=== PATIENT | male | born 1970 | race African-American/Black ===

== ENCOUNTER 2018-03-08 18:57 | Emergency (ER) | payer MEDICAID ==
[~2018-03-08] VITALS: Ht 177.8 cm; Wt 90.7 kg
[2018-03-08 20:20] LABS: Basophils # (auto) 0 uL; Basophils % (auto) 0.4 % (0.0-2.0); Eosinophils # (auto) 0.2 uL; Eosinophils % (auto) 1.7 % (0.0-7.0); Lymphocytes # (auto) 2.5 uL; Lymphocytes % (auto) 18.1 % (10.0-50.0); Mean Corpuscular Hemoglobin 28.8 pg (28.0-32.0); Mean Corpuscular Hgb Conc. 33.4 g/dL (32.0-36.0); Mean Corpuscular Volume 86.5 fL (80.0-100.0); Monocytes # (auto) 1.1 uL; Neutrophils # (auto) 9.9 uL; Neutrophils % (auto) 71.8 % (37.0-80.0); Platelet Count (auto) 587 10^3/uL (140-450); Red Blood Cells 4.16 10^6/uL (4.5-5.90); Red Cell Distribution Width 15.5 % (11.8-14.3); White Blood Cell 13.7 10^3/uL (4.4-10.8)
[2018-03-08 20:35] LABS: Albumin 2.5 g/dL (3.4-5.0); Calcium 9.5 mg/dL (8.5-10.1); Potassium 3.8 mmol/L (3.5-5.1)
[2018-03-08 20:37] LABS: BUN/Creatinine Ratio 12.7
[2018-03-08 20:40] LABS: Bilirubin, Total 0.3 mg/dL (0.2-1.0); Total Protein 9.7 g/dL (6.4-8.2)
[2018-03-08] MEDS ORDERED: ACETAMINOPHEN/CODEINE#3 (300/30mg) TAB PO ONE (21:45)
[2018-03-08] MEDS ORDERED: DOXYCYCLINE 100 MG TAB/CAP PO ONE (21:45)
[2018-03-08 21:47] VITALS: BP 140/78
== END 2018-03-08 22:08 | disposition home or self-care (01) ==
LOC: ER 18:57
DX: L73.2 Hidradenitis suppurativa (principal)
CPT/HCPCS: 36415; 80053; 82962; 85025

== ENCOUNTER 2019-12-05 09:16 | Emergency (ER) | payer MEDICAID ==
[~2019-12-05] VITALS: Ht 162.6 cm; Wt 88.5 kg
[2019-12-05 10:20] VITALS: BP 121/67
[2019-12-05 10:40] LABS: Basophils # (auto) 0.1 10 ^3/uL (0-0.2); Lymphocytes # (auto) 2.2 10 ^3/uL (0.4-5.4); Mean Corpuscular Hemoglobin 26.4 pg (28.0-32.0); Neutrophils % (auto) 70.7 % (37.0-80.0)
[2019-12-05 10:41] LABS: Basophils % (auto) 0.9 % (0.0-2.0); Eosinophils # (auto) 0.2 10 ^3/uL (0-0.8); Eosinophils % (auto) 1.3 % (0.0-7.0); Hematocrit 33.6 % (41.0-53.0); Hemoglobin 10.6 g/dL (13.5-17.5); Lymphocytes % (auto) 18.2 % (10.0-50.0); Mean Corpuscular Hgb Conc. 31.6 g/dL (32.0-36.0); Mean Corpuscular Volume 83.6 fL (80.0-100.0); Monocytes # (auto) 1.1 10 ^3/uL (0-1.3); Monocytes % (auto) 8.9 % (0.0-12.0); Neutrophils # (auto) 8.7 10 ^3/uL (1.6-8.6); Platelet Count (auto) 451 10^3/uL (140-450); Red Blood Cells 4.01 10^6/uL (4.5-5.90); White Blood Cell 12.2 10^3/uL (4.4-10.8)
[2019-12-05 10:43] LABS: Red Cell Distribution Width 20.1 % (11.8-14.3)
[2019-12-05 10:58] LABS: Albumin 2.8 g/dL (3.4-5.0); Calcium 10.3 mg/dL (8.5-10.1); Potassium 3.6 mmol/L (3.5-5.1)
[2019-12-05 11:01] LABS: BUN/Creatinine Ratio 10.2; Bilirubin, Total 0.5 mg/dL (0.2-1.0); Total Protein 9.9 g/dL (6.4-8.2)
== END 2019-12-05 12:04 | disposition left against medical advice (07) ==
LOC: ER 09:16
DX: L89.90 Pressure ulcer of unspecified site, unspecified stage (principal); L02.416 Cutaneous abscess of left lower limb; Z93.3 Colostomy status
CPT/HCPCS: 36415; 80053; 83605; 85025

== ENCOUNTER 2023-03-15 17:03 | Emergency (ER) | payer MEDICAID ==
[~2023-03-15] VITALS: Ht 177.8 cm; Wt 88.7 kg
[2023-03-15 18:29] VITALS: TEMP 97.9
[2023-03-15] MEDS ORDERED: SULF800T23 PO (18:54)
[2023-03-15] MEDS ORDERED: BACITRACIN TOP OINT 1 UD PKG TOP ONE ×2 (19:00)
[2023-03-15] MEDS ORDERED: cefTRIAXone SOD 1,000 MG VL IM ONE (19:00)
[2023-03-15 19:15] VITALS: BP 131/72; PULSE 95; RESP 18; O2SAT 99
== END 2023-03-15 19:16 | disposition home or self-care (01) ==
LOC: ER 17:03
DX: L73.2 Hidradenitis suppurativa (principal); L02.32 Furuncle of buttock; F17.210 Nicotine dependence, cigarettes, uncomplicated; F12.90 Cannabis use, unspecified, uncomplicated; Z98.890 Other specified postprocedural states
CPT/HCPCS: 96372; 99283; J0696

== ENCOUNTER 2023-05-24 12:38 | Inpatient (IN) | payer MEDICAID ==
[~2023-05-24] VITALS: Ht 177.8 cm; Wt 86.2 kg
[~2023-05-24 12:38] MED LIST: SULF800T23 PO
[2023-05-24 13:00] VITALS: PULSE 73; RESP 20; O2SAT 98
[2023-05-24 14:46] LABS: Basophils # (auto) 0.1 10 ^3/uL (0-0.2); Hemoglobin 9.4 g/dL (13.5-17.5); Mean Corpuscular Volume 82.8 fL (80.0-100.0); Red Cell Distribution Width 18.6 % (11.8-14.3)
[2023-05-24 14:49] LABS: Basophils % (auto) 0.6 % (0.0-2.0); Eosinophils # (auto) 0.2 10 ^3/uL (0-0.8); Eosinophils % (auto) 1.1 % (0.0-7.0); Hematocrit 30.6 % (41.0-53.0); Lymphocytes # (auto) 1.8 10 ^3/uL (0.4-5.4); Lymphocytes % (auto) 12.5 % (10.0-50.0); Mean Corpuscular Hemoglobin 25.4 pg (28.0-32.0); Mean Corpuscular Hgb Conc. 30.7 g/dL (32.0-36.0); Monocytes # (auto) 1.4 10 ^3/uL (0-1.3); Monocytes % (auto) 9.5 % (0.0-12.0); Neutrophils # (auto) 10.9 10 ^3/uL (1.6-8.6); Neutrophils % (auto) 76.3 % (37.0-80.0); Red Blood Cells 3.69 10^6/uL (4.5-5.90); White Blood Cell 14.2 10^3/uL (4.4-10.8)
[2023-05-24 15:01] LABS: Alanine Aminotransferase 15 U/L (7-40); Alkaline Phosphatase 109 U/L (46-116); Anion Gap 5 (5-15); BUN/Creatinine Ratio 8.3 (10.0-20.0); Blood Urea Nitrogen 5 mg/dL (9-23); Calcium 9.5 mg/dL (8.5-10.1); Carbon Dioxide 25 mmol/L (20-30); Chloride 108 mmol/L (98-107); Glucose 111 mg/dL (74-106); Potassium 3.8 mmol/L (3.5-5.1); Sodium 138 mmol/L (136-145)
[2023-05-24 15:02] LABS: Albumin 3.6 g/dL (3.2-4.8); Aspartate Aminotransferase 8 U/L (13-40); Bilirubin, Total 0.2 mg/dL (0.2-1.0); Total Protein 8.1 g/dL (5.7-8.2)
[2023-05-24] MEDS ORDERED: VANCOMYCIN 1GM/200ML 250 ML IV ONE (16:15)
[2023-05-24] MEDS ORDERED: PIPERACILLIN-TAZOB 3.375GM 100 ML IV ONE (16:15)
[2023-05-24] MEDS ORDERED: MORPHINE SULFATE INJ 2 MG/ml SYRG IV PRN (17:00)
[2023-05-24] MEDS ORDERED: DOCUSATE SOD 100 MG CAP PO PRN (17:00)
[2023-05-24] MEDS ORDERED: VANCOMYCIN PER PHARMACY 0 MG IV SCH (17:00)
[2023-05-24] MEDS ORDERED: ACETAMINOPHEN 325 MG TAB PO PRN (17:00)
[2023-05-24] MEDS ORDERED: ONDANSETRON HCL 4 MG/2 ML VIAL IV PRN (17:00)
[2023-05-24 17:08] LABS: Urine Bacteria NONE SEEN /hpf (None Seen); Urine Blood Negative /uL (Negative); Urine Clarity Clear (Clear); Urine Color Yellow (Yellow); Urine Hyaline Cast FEW /lpf (0 - 2); Urine Mucus FEW (None Seen); Urine Protein, UAD 1+ (Negative); Urine Specific Gravity 1.031 (1.001-1.035); Urine WBC 5 /hpf (0 - 3); Urine pH 5.5 (5.0-8.0)
[2023-05-24] MEDS: SODIUM CHLORIDE 0.9% 1,000 ML IV SCH ×2 (23:45→23:51)
[2023-05-24] MEDS: SODIUM CHLOR 0.9% PF (SALINE LOCK) 10ML VIAL/SYR IV SCH (23:51)
[2023-05-25] VITALS (8 sets, daily range): BP systolic 99–124; BP diastolic 66–98; PULSE 64–106; RESP 14–22; TEMP 97.3–98.3; O2SAT 98–99
[2023-05-25] MEDS ORDERED: VANCOMYCIN 1GM/200ML 250 ML IV SCH
[2023-05-25] MEDS: CLINDAMYCIN 600MG IV 50 ML IV SCH ×4 (00:29→22:38)
[2023-05-25] MEDS: SODIUM CHLORIDE 0.9% 1,000 ML IV SCH ×4 (01:04→21:25)
[2023-05-25] MEDS: VANCOMYCIN 1GM/200ML 250 ML IV SCH ×3 (02:56→19:00)
[2023-05-25] MEDS: HYDROcodone-ACET 5/325MG TAB PO PRN (03:19)
[2023-05-25] MEDS: SODIUM CHLOR 0.9% PF (SALINE LOCK) 10ML VIAL/SYR IV SCH ×3 (06:03→22:40)
[2023-05-25 06:06] LABS: Basophils # (auto) 0.1 10 ^3/uL (0-0.2); Hemoglobin 9.6 g/dL (13.5-17.5); Mean Corpuscular Hemoglobin 25.1 pg (28.0-32.0)
[2023-05-25 06:10] LABS: Basophils % (auto) 0.5 % (0.0-2.0); Eosinophils # (auto) 0.2 10 ^3/uL (0-0.8); Eosinophils % (auto) 1.2 % (0.0-7.0); Hematocrit 30.8 % (41.0-53.0); Lymphocytes # (auto) 2.4 10 ^3/uL (0.4-5.4); Lymphocytes % (auto) 15.8 % (10.0-50.0); Mean Corpuscular Hgb Conc. 31.1 g/dL (32.0-36.0); Mean Corpuscular Volume 80.8 fL (80.0-100.0); Monocytes # (auto) 1.2 10 ^3/uL (0-1.3); Monocytes % (auto) 7.7 % (0.0-12.0); Neutrophils # (auto) 11.5 10 ^3/uL (1.6-8.6); Neutrophils % (auto) 74.8 % (37.0-80.0); Red Blood Cells 3.82 10^6/uL (4.5-5.90); Red Cell Distribution Width 18.6 % (11.8-14.3); White Blood Cell 15.4 10^3/uL (4.4-10.8)
[2023-05-25 06:20] LABS: Alanine Aminotransferase 11 U/L (7-40); Alkaline Phosphatase 128 U/L (46-116); Anion Gap 6 (5-15); Calcium 9.6 mg/dL (8.5-10.1); Carbon Dioxide 26 mmol/L (20-30); Chloride 105 mmol/L (98-107); Glucose 97 mg/dL (74-106); Potassium 3.7 mmol/L (3.5-5.1); Sodium 137 mmol/L (136-145)
[2023-05-25 06:21] LABS: Albumin 3.6 g/dL (3.2-4.8); Aspartate Aminotransferase 9 U/L (13-40); Bilirubin, Total 0.4 mg/dL (0.2-1.0); Total Protein 8.1 g/dL (5.7-8.2)
[2023-05-25 06:43] LABS: BUN/Creatinine Ratio 7.8 (10.0-20.0); Blood Urea Nitrogen < 5 mg/dL (9-23)
[2023-05-26] VITALS (7 sets, daily range): BP systolic 105–137; BP diastolic 59–82; PULSE 80–101; RESP 16–18; TEMP 98–98.3; O2SAT 94–100
[2023-05-26] MEDS: HYDROcodone-ACET 5/325MG TAB PO PRN (01:33)
[2023-05-26] MEDS: VANCOMYCIN 1GM/200ML 250 ML IV SCH ×3 (03:12→18:45)
[2023-05-26] MEDS: SODIUM CHLORIDE 0.9% 1,000 ML IV SCH ×3 (04:05→17:25)
[2023-05-26] MEDS: CLINDAMYCIN 600MG IV 50 ML IV SCH ×3 (05:24→21:38)
[2023-05-26] MEDS: SODIUM CHLOR 0.9% PF (SALINE LOCK) 10ML VIAL/SYR IV SCH ×3 (05:29→21:38)
[2023-05-26 11:58] LABS: INR 1.18 (0.9-1.15); Partial Thromboplastin Time 29.8 SEC (24.5-34.5); Prothrombin Time 12.3 sec (9.3-11.8)
[2023-05-27] MEDS: SODIUM CHLORIDE 0.9% 1,000 ML IV SCH ×3 (00:05→13:25)
[2023-05-27] MEDS: VANCOMYCIN 1GM/200ML 250 ML IV SCH ×2 (02:57→11:00)
[2023-05-27 04:57] VITALS: BP 117/70; PULSE 78; RESP 18; TEMP 98.4; O2SAT 95
[2023-05-27] MEDS: SODIUM CHLOR 0.9% PF (SALINE LOCK) 10ML VIAL/SYR IV SCH ×2 (06:00→14:00)
[2023-05-27] MEDS: CLINDAMYCIN 600MG IV 50 ML IV SCH ×2 (06:17→14:00)
[2023-05-27 08:00] VITALS: BP 118/71; PULSE 71; RESP 17; TEMP 98; O2SAT 97
[2023-05-27 08:06] LABS: Immunoglobulin A 348 mg/dL (90-386); Immunoglobulin G, Serum 2834 mg/dL (603-1613); Immunoglobulin M 36 mg/dL (20-172)
[2023-05-27 08:55] VITALS: BP 118/71; PULSE 71; RESP 17; TEMP 98; O2SAT 97
[2023-05-27] MEDS ORDERED: HYDR-4902 PO (10:04)
[2023-05-27 12:57] VITALS: BP 125/81; PULSE 89; RESP 20; TEMP 97.9; O2SAT 98
[2023-05-27 14:44] VITALS: BP 125/81; PULSE 89; RESP 20; TEMP 97.9; O2SAT 98
[2023-05-27 16:56] VITALS: BP 128/75; PULSE 87; RESP 20; TEMP 97.5; O2SAT 97
== END 2023-05-27 16:38 | disposition home or self-care (01) | DRG 254 ==
LOC: EDBD 12:38 → ER 12:38 → OVERFLOW 17:13 → EAST 05-25 03:01
PROVIDERS: ADMIT Nurse Practitioner Family; ATTEND Family Medicine
DX: R19.00 Intra-abdominal and pelvic swelling, mass and lump, unspecified site (principal); E44.0 Moderate protein-calorie malnutrition; L02.211 Cutaneous abscess of abdominal wall; D72.829 Elevated white blood cell count, unspecified; E86.0 Dehydration; F17.200 Nicotine dependence, unspecified, uncomplicated; Z68.27 Body mass index [BMI] 27.0-27.9, adult; Z93.3 Colostomy status; Z71.6 Tobacco abuse counseling
CPT/HCPCS: 36415; 74176; 80053; 80202; 81001; 82784; 83605; 83615; 85025; 85610; 85730; 86334; 87040; 87205; 96365; G0378; J2543; J3490

== ENCOUNTER 2025-05-18 18:23 | Emergency (ER) | payer MEDICAID ==
[~2025-05-18] VITALS: Ht 177.8 cm; Wt 84.1 kg
[~2025-05-18 18:23] MED LIST changes: +HYDR-4902 PO
[2025-05-18 18:25] VITALS: BP 144/86; TEMP 98.3
[2025-05-18 18:35] VITALS: PULSE 99
--- NOTE | 2025-05-18 19:13 | ED.PDOC ---
SOB-HPI HPI Comments 54-year-old male came to ER due to shortness of breath. Patient states for the past few days he has been experiencing a productive cough with shortness of breaths progressively worsening. Denies any acute chest pains or fever. He admits that he does smoke cigarettes. Patient is saturating 97% on room air Chief Complaint: Shortness of Breath Time Seen by MD: 19:13 Primary Care Provider: Seymour Dougherty notes: Nurses Notes Information Source: Patient Mode of Arrival: Ambulatory Severity: Moderate Timing: Days Past Medical History Past Medical History (Other): Tendonitis, multiple abscesses Surgical History: Denies all surgeries Family History Family History: Reviewed,noncontributory to illness, Unknown Social History Smoker: Cigarettes, Less Than 1 Pack/Day Alcohol: Denies ETOH Use Drugs: Marijuana Lives In: Home Constitutional: denies: chills, diaphoresis, fatigue, fever, malaise, sweats, weakness, others EENTM: denies: blurred vision, double vision, ear bleeding, ear discharge, ear drainage, ear pain, ear ringing, eye pain, eye redness, hearing loss, mouth pain, mouth swelling, nasal discharge, nose bleeding, nose congestion, nose pain, photophobia, tearing, throat pain, throat swelling, voice changes, others Respiratory: reports: cough, SOB at rest, shortness of breath, SOB with excertion; denies: hemoptysis, orthopnea, stridor, wheezing, others Cardiovascular: denies: chest pain, dizzy spells, diaphoresis, Dyspnea on exert ion, edema, irregular heart beat, left arm pain, lightheadedness, palpitations, PND, syncope, others Gastrointestinal: denies: abdomen distended, abdominal pain, blood streaked bowels, constipated, diarrhea, dysphagia, difficulty swallowing, hematemesis, melena, nausea, poor appetite, poor fluid intake, rectal bleeding, rectal pain, vomiting, others Genitourinary: denies: burning, dysuria, flank pain, frequency, hematuria, incontinence, penile discharge, penile sore, pain, testicle pain, testicle swelling, urgency, others Neurological: denies: dizziness, fainting, headache, left sided numbness, left sided weakness, numbness, paresthesia, pre-existing deficit, right sided numbness, right sided weakness, seizure, speech problems, tingling, tremors, weakness, others Musculoskeletal: denies: back pain, gout, joint pain, joint swelling, muscle pain, muscle stiffness, neck pain, others Integumetry: denies: bruises, change in color, change in hair/nails, dryness, laceration, lesions, lumps, rash, wounds, others Allergic/Immunocompromised: denies: Difficulty Healing, Frequent Infections, Hives, Itching, others Hematologic/Lymphatic: denies: anemia, blood clots, easy bleeding, easy bruising, swollen glands, others Endocrine: denies: excessive hunger, excessive sweating, excessive thirst, excessive urination, flushing, intolerance to cold, intolerance to heat, unexplained weight gain, unexplained weight loss, others Psychiatric: denies: anxiety, bipolar disorder, depression, hopeless, panic disorder, schizophrenia, sleepless, suicidal, others Physical Exam General Appearance: No Apparent Distress, Normal HEENT: Normal ENT Inspection, Pharynx Normal, TMs Normal Neck: Full Range of Motion, Non-Tender, Normal, Normal Inspection Respiratory: Chest Non-Tender, Lungs Clear, No Accessory Muscle Use, No Respiratory Distress, Normal Breath Sounds Cardiovascular: No Edema, No JVD, No Murmur, No Gallop, Normal Peripheral Pulses, Regular Rate/Rhythm Breast Exam: Deferred Gastrointestinal: No Organomegaly, Non Tender, No Pulsatile Mass, Normal Bowel Sounds, Soft Genitalia: Deferred Pelvic: Deferred Rectal: Deferred Extremities: No calf tenderness, Normal capillary refill, Normal inspection, Normal range of motion, Non-tender, No pedal edema Musculoskeletal : Apperance: Normal Neurologic: Alert, user experience designer II-XII nml as Tested, No Motor Deficits, Normal Affect, Normal Mood, No Sensory Deficits Cerebellar Function: Normal Reflexes: Normal Skin: Dry, Normal Color, Warm Lymphatic: No Adenopathy Was a procedure done? Was a procedure done?: No Differential Dx Differential Diagnosis: Bronchitis, CHF, COPD, Pneumonia, Respiratory Distress, URI X-Ray, Labs, Meds, VS Vital Signs Date Time Temp Pulse Resp B/P (MAP) Pulse Ox O2 Delivery O2 Flow Rate FiO2 05/18/25 18:35 99 05/18/25 18:25 98.3 106 20 144/86 97 98.3 CHEST RADIOGRAPH Indication: sob Technique: Single frontal view of the chest was obtained Comparison: None FINDINGS: Lines and Tubes: None Lungs: No focal consolidation. Loop recorder is noted over the left hilum. Pleura: No effusion. No pneumothorax. Cardiomediastinal contours: Unremarkable Bones: No acute osseous abnormality. IMPRESSION: 1. No acute cardiopulmonary disease. Time of 1ST Reevaluation: 19:11 Reevaluation 1ST: Unchanged Patient Education/Counseling: Diagnosis, Treatment, Prognosis, Need For Follow Up Family Education/Counseling: No Family Present Comments This patient presents with shortness of breath. Lungs are clear. Pulse ox is normal. Chest x-ray is normal. Patient is resting comfortably. Patient likely has an URI. I will prescribe him albuterol and he is stable for discharge. He does not have any evidence of CHF, pneumonia, nor does have any risk factors for coronary artery disease or PE. SEPSIS Sepsis Screen Date sepsis recognized/suspect: May 18, 2025 Time Sepsis recognized/suspect: 1828 Recent Procedure: No On Antibiotic Therapy: No Respiratory Rate >20: No Heart Rate >90: Yes Temp<36 C (96.8 F) or >38.3 C: No SBP <90 or MAP <65 mmHG: No New Acute Mental Status Change: No Is the patient on CPAP, BIPAP,: No Physician Orders Electrocardigram (05/18/25 18:30) Chest Xray 1 View (05/18/25 19:11) Vital Signs Date Time Temp Pulse Resp B/P (MAP) Pulse Ox O2 Delivery O2 Flow Rate FiO2 05/18/25 18:35 99 05/18/25 18:25 98.3 106 20 144/86 97 98.3 Departure 1 Departure Time of Disposition: 21:15 Impression: Primary Impression: URI (upper respiratory infection) Disposition: 01 HOME / SELF CARE / HOMELESS Condition: Good Discharged With: Self Critical Care Note Critical Care Time?: No Stability Stability form required: No Heart Score Heart Score: Heart Score Response (Comments) Value History N/A 0 EKG N/A 0 Age N/A 0 Risk Factors N/A 0 Troponin N/A 0 Total 0 I personally scribed for BASILIO CERDA MD ([email or web address]) on 05/18/25 at 19:13. Electronically submitted by Ben Walton ([facility]). I personally scribed for BASILIO CERDA MD ([email or web address]) on 05/18/25 at 20:09. Electronically submitted by Ben Walton ([email or web address]). BASILIO CERDA MD May 18, 2025 19:13
--- NOTE | 2025-05-18 19:39 | DVH ---
CHEST RADIOGRAPH Indication: sob Technique: Single frontal view of the chest was obtained Comparison: None FINDINGS: Lines and Tubes: None Lungs: No focal consolidation. Loop recorder is noted over the left hilum. Pleura: No effusion. No pneumothorax. Cardiomediastinal contours: Unremarkable Bones: No acute osseous abnormality. IMPRESSION: 1. No acute cardiopulmonary disease.
[2025-05-18] MEDS: ALBUTEROL SULF 2.5 MG/0.5ML(0.5%) NEB SOLN NEB ONE (20:15)
[2025-05-18 21:17] VITALS: RESP 18; O2SAT 95
--- NOTE | 2025-05-21 06:39 | ECG ---
[facility] Test Date: 2025-05-18 Test Time: 18:35:56 Pat Name: SYMONE FUENTES Department: Room: Gender: M Utilization Review Rn: MERE : 1970 Requested By: EDWAR RIGGS Order Number: [id number] Reading MD: Jose Hercules Measurements Intervals Alvin Rate: 99 P: 67 MA: 214 QRS: 53 QRSD: 90 T: 24 QT: 315 QTc: 405 Interpretive Statements Sinus rhythm Borderline prolonged MA interval Electronically Signed On 05-24-2025 19:02:11 PST by Jose Hercules Please click the below link to view image of tracing.
== END 2025-05-19 00:19 | disposition home or self-care (01) ==
LOC: ER 18:23
DX: J06.9 Acute upper respiratory infection, unspecified (principal); F17.210 Nicotine dependence, cigarettes, uncomplicated
CPT/HCPCS: 71045; 93005; 94640

== ENCOUNTER 2025-05-19 12:16 | Emergency (ER) | payer MEDICAID ==
[~2025-05-19] VITALS: Ht 182.9 cm; Wt 82.0 kg
--- NOTE | 2025-05-19 13:06 | ED.PDOC ---
History of Present Illness HPI Comments 54 y/o M is BIBA for c/c of right testicular pain and swelling. Per EMS personnel report, patient endorses on unprovoked and atraumatic onset of symptoms. He is on Doxycycline and Azithromycin, currently, following a recent 'testicle draining'-related procedure he had performed 1x month ago at [facility]. No further acute symptoms reported. 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, Medications, Allergies Allergies: Coded Allergies: NO KNOWN ALLERGIES (Unverified , 12/05/19) Home Meds Active Scripts Hydrocodone-Acetaminophen (Hydrocodone Bitartrate/AC 5-325 mg) 1 Tab Tab, 1 TAB PO QID PRN, #30 TAB Prov:TYSON BLANCO MD 05/27/23 Sulfamethoxazole W/Trimethopri (Trimethoprim/Sulfamethoxa) 1 Tab Tab, 1 TAB PO BID for 7 Days, #14 TAB 0 Refills Prov:GINA MACHADO 03/15/23 Information Source: Patient, Emergency Med Personnel Mode of Arrival: EMS Severity: Moderate Timing: Hours Duration: Since onset 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, 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 Past Medical History PAST MEDICAL HISTORY: Denies Surgical History (Other): testicle draining procedure Family History Family History: Reviewed,noncontributory to illness, Unknown Social History Smoker: Cigarettes, Less Than 1 Pack/Day Alcohol: Denies ETOH Use Drugs: Marijuana Lives In: Home All Other Systems: Reviewed and Negative (Comprehensive review of systems are negative unless stated in HPI) Physical Exam General Appearance: No Apparent Distress, Normal HEENT: Normal ENT Inspection, Pharynx Normal, TMs Normal Neck: Full Range of Motion, Non-Tender, Normal, Normal Inspection Respiratory: Chest Non-Tender, Lungs Clear, No Accessory Muscle Use, No Respiratory Distress, Normal Breath Sounds Cardiovascular: No Edema, No JVD, No Murmur, No Gallop, Normal Peripheral Pulses, Regular Rate/Rhythm Breast Exam: Deferred Gastrointestinal: No Organomegaly, Non Tender, No Pulsatile Mass, Normal Bowel Sounds, Soft Genitalia: Deferred Pelvic: Deferred Rectal: Deferred Extremities: No calf tenderness, Normal capillary refill, Normal inspection, Normal range of motion, Non-tender, No pedal edema Musculoskeletal : Apperance: Normal Neurologic: Alert, pull up hand II-XII nml as Tested, No Motor Deficits, Normal Affect, Normal Mood, No Sensory Deficits Cerebellar Function: Normal Reflexes: Normal Skin: Dry, Normal Color, Warm Lymphatic: No Adenopathy Was a procedure done? Was a procedure done?: No Differential Dx Considerations may include: testicular torsion, epidimyitis, abscess, hydrocele, varicocele, among others X-Ray, Labs, Meds, VS Lab Test 05/19/25 12:59 Range/Units White Blood Count 16.3 H 4.4-10.8 10^3/uL Red Blood Count 4.06 L 4.5-5.90 10^6/uL Hemoglobin 11.1 L 13.5-17.5 g/dL Hematocrit 34.8 L 41.0-53.0 % Mean Corpuscular Volume 85.7 80.0-100.0 fL Mean Corpuscular Hemoglobin 27.2 L 28.0-32.0 pg Mean Corpuscular Hemoglobin Concent 31.8 L 32.0-36.0 g/dL Red Cell Distribution Width 17.8 H 11.8-14.3 % Platelet Count 427 140-450 10^3/uL Mean Platelet Volume 6.8 L 6.9-10.8 fL Neutrophils (%) (Auto) 76.8 37.0-80.0 % Lymphocytes (%) (Auto) 13.8 10.0-50.0 % Monocytes (%) (Auto) 7.5 0.0-12.0 % Eosinophils (%) (Auto) 1.2 0.0-7.0 % Basophils (%) (Auto) 0.7 0.0-2.0 % Neutrophils # (Auto) 12.5 H 1.6-8.6 10 ^3/uL Lymphocytes # (Auto) 2.2 0.4-5.4 10 ^3/uL Monocytes # (Auto) 1.2 0-1.3 10 ^3/uL Eosinophils # (Auto) 0.2 0-0.8 10 ^3/uL Basophils # (Auto) 0.1 0-0.2 10 ^3/uL Nucleated Red Blood Cells 0.0 % Sodium Level 143 136-145 mmol/L Potassium Level 4.0 3.5-5.1 mmol/L Chloride Level 108 H 98-107 mmol/L Carbon Dioxide Level 26 20-31 mmol/L Anion Gap 9 5-15 Blood Urea Nitrogen 15 9-23 mg/dL Creatinine 1.03 0.700-1.30 mg/dL Glomerular Filtration Rate Calc 87 >90 mL/min BUN/Creatinine Ratio 14.6 10.0-20.0 Serum Glucose 98 74-106 mg/dL Calcium Level 10.4 8.7-10.4 mg/dL Troponin I High Sensitivity < 3 L </=54 ng/L B-Type Natriuretic Peptide 11.90 0-100 pg/mL Time of 1ST Reevaluation: 13:10 Reevaluation 1ST: Unchanged Patient Education/Counseling: Diagnosis, Treatment Family Education/Counseling: No Family Present SEPSIS Sepsis Screen Physician Orders Urinalysis (05/19/25 12:45) Testicular Ultrasound (05/19/25 12:45) Laboratory Tests Test 05/19/25 12:59 White Blood Count 16.3 10^3/uL (4.4-10.8) H Departure 1 Departure Time of Disposition: 17:17 (Who presented with swelling testicles. Patient eloped prior to workup with the patient) Impression: Primary Impression: Testicular swelling Disposition: 07 LEFT AWOL/ELOPED Condition: Serious Critical Care Note Critical Care Time?: No Stability Stability form required: No Heart Score Heart Score: Heart Score Response (Comments) Value History N/A 0 EKG N/A 0 Age N/A 0 Risk Factors N/A 0 Troponin N/A 0 Total 0 I personally scribed for EDWAR RIGGS MD ([email or web address]) on 05/19/25 at 13:06. Elect ronically submitted by Hari Porter ([email or web address]). EDWAR RIGGS MD May 19, 2025 13:06
[2025-05-19 13:28] LABS: Hematocrit 34.8 % (41.0-53.0); Hemoglobin 11.1 g/dL (13.5-17.5); Mean Corpuscular Hemoglobin 27.2 pg (28.0-32.0); Mean Corpuscular Volume 85.7 fL (80.0-100.0); Nucleated Red Blood Cells % 0.0 %
[2025-05-19 13:30] LABS: Potassium 4.0 mmol/L (3.5-5.1); Sodium 143 mmol/L (136-145)
[2025-05-19 13:31] LABS: Anion Gap 9 (5-15); Calcium 10.4 mg/dL (8.7-10.4); Carbon Dioxide 26 mmol/L (20-31)
[2025-05-19 13:36] LABS: BUN/Creatinine Ratio 14.6 (10.0-20.0); Blood Urea Nitrogen 15 mg/dL (9-23); Glucose 98 mg/dL (74-106)
[2025-05-19 13:53] LABS: Chloride 108 mmol/L (98-107)
[2025-05-19 17:45] VITALS: BP 132/86; PULSE 96; RESP 18; TEMP 97.7; O2SAT 99
== END 2025-05-19 16:55 | disposition left against medical advice (07) ==
LOC: ER 12:16 → EDBD 12:16 → ER 16:55
DX: N50.89 Other specified disorders of the male genital organs (principal); N50.811 Right testicular pain; F17.210 Nicotine dependence, cigarettes, uncomplicated; Z79.899 Other long term (current) drug therapy
CPT/HCPCS: 36415; 80048; 83880; 84484; 85025